=== PATIENT | female | born 1960 | race Two or more races ===

== ENCOUNTER 2025-01-11 15:17 | Emergency (ER) | payer BC, SELFPAY ==
--- NOTE | 2025-01-11 16:18 | EKG_ITS ---
[facility] Test Date: 2025-01-11 Pat Name: KALYAN TERAN Department: Room: - Gender: Female Health Analyst: : 1960 Requested By: Demetrius Goodman Order Number: [id number] Reading MD: Demetrius Goodman Measurements Intervals [place] Rate: 97 P: 68 [place]: 148 QRS: 41 QRSD: 78 T: 55 QT: 338 QTc: 430 Interpretive Statements SINUS RHYTHM POSSIBLE LEFT ATRIAL ENLARGEMENT [-0.1mV P-WAVE IN V1/V2] POSSIBLE RIGHT VENTRICULAR CONDUCTION DELAY [RSR (QR) IN V1/V2] No previous ECG available for comparison /store/S0/[id number]/ecg/[id number].pdf
--- NOTE | 2025-01-11 16:18 | XR_ITS ---
Examination: CT abdomen and pelvis without contrast. Coronal 3-D reconstructions. Sagittal 2-D reconstructions. Date and time of exam:January 11, 2025 1827 hrs. Indications: Left flank pain today CTDI: vol (mGy): 7.19 DLP: (mGycm): 375 Technique: Axial images of the abdomen have been obtained, 3 mm slice thickness Intravenous contrast material has not been administered. Low dose protocols were performed. One or more of the following dose reduction techniques were used; automated exposure control, adjustment of the mA and/or KV according to patient size, use of iterative reconstruction technique. Findings: No focal liver or splenic lesions No gallstones No pancreatic or adrenal mass No renal or ureteral calculi, no hydronephrosis Aorta normal size No bowel obstruction Normal appendix No diverticulitis No bladder mass or bladder calculi No pelvic mass Impression: No renal or ureteral calculi, no hydronephrosis No bladder mass or bladder calculi Normal appendix
--- NOTE | 2025-01-11 16:19 | PD.EDRME ---
Rapid Medical Screening Exam RME Arrival date/time: 01/11/25 15:17 CC: Right hip/flank/inguinal crease pain pain radiates down into the left thigh HPI abrupt onset this morning when she stood up from the bed. Progressive increase in pain currently an 8 on a 10 scale took ibuprofen without relief at 2 PM this afternoon. Denies painful urination bloody urination diarrhea chest pain shortness of breath or difficulty breathing. No higher prior history of similar events. Chief Complaint: Abdominal Pain Time Seen by Provider: 01/11/25 15:36
[2025-01-11 16:35] VITALS: BP 154/82; PULSE 86; RESP 18; TEMP 36.6; O2SAT 97; BMI 24.5
[2025-01-11 16:44] LABS: Basophils % (Auto) 0 % (0-2.5); Eosinophils % (Auto) 0 % (0-10); Hematocrit 40.9 % (36.0-46.0); Hemoglobin 14.3 g/dL (12.0-16.0); Immature Granulocytes % (Auto) 0 % (0-0); Immature Granulocytes Auto 0.03 Thou/mm3 (0.00-0.00); Lymphocytes # (Auto) 1.9 Thou/mm3 (1.0-4.8); Lymphocytes % (Auto) 21 % (10-50); Mean Corpuscular Hemoglobin 30.8 pg (25.0-35.0); Mean Corpuscular Volume 88 fL (80-100); Monocytes # (Auto) 0.3 Thou/mm3 (0.0-0.8); Monocytes % (Auto) 4 % (0-12); Neutrophils # (Auto) 6.6 Thou/mm3 (1.8-7.7); Neutrophils % (Auto) 75 % (37-80); Nucleated Red Blood Cell % 0 /100 WBC (0); Platelet Count 384 Thou/mm3 (140-440); RDW Standard Deviation 42.9 fL (36.4-46.3); Red Blood Count 4.65 Miln/mm3 (4.00-5.20); White Blood Count 8.9 Thou/mm3 (3.6-11.0)
[2025-01-11] MEDS: oxyCODONE/APAP 5/325 TABLET 1 TAB PO (17:00)
[2025-01-11 17:01] LABS: Partial Thromboplastin Time 25.1 Seconds (22.0-36.0); Prothrombin Time 10.9 Seconds (9.0-12.2)
[2025-01-11 17:04] LABS: B-Type Natriuretic Peptide < 20 pg/mL (0-100)
[2025-01-11 17:05] LABS: Alanine Aminotransferase 21 U/L (10-49); Albumin, Serum 4.7 gm/dL (3.4-4.8); Albumin/Globulin Ratio 1.5 (1.2-2.2); Alkaline Phosphatase 114 U/L (46-116); Anion Gap 12 (7-16); Aspartate Amino Transferase 29 U/L (0-34); BUN/Creatinine Ratio 21 Ratio (12-20); Bilirubin,Total 0.8 mg/dL (0.3-1.2); Blood Urea Nitrogen 17 mg/dL (9-23); Calcium 9.8 mg/dL (8.3-10.6); Calcium (Corrected) 9.8 mg/dL (8.5-10.1); Carbon Dioxide 24.2 mMol/L (20.0-31.0); Chloride 103 mMol/L (98-107); Creatinine (Component) 0.8 mg/dL (0.6-1.3); Estimated Creatinine Clearance 62.6 mL/min (>60); Globulin 3.1 gm/dL (2.3-3.5); Glucose 126 mg/dL (74-106); Lipase 34 U/L (12-53); Magnesium 2.1 mg/dL (1.6-2.6); Osmolality,Calculated 281 (275-295); Potassium 4.2 mMol/L (3.4-5.1); Sodium 139 mMol/L (136-145); Total Protein 7.8 gm/dL (5.7-8.2); eGFR > 60 See Note
[2025-01-11 18:42] LABS: Collection Type, Urine Clean Catch
[2025-01-11 19:03] LABS: Bilirubin,Urine Negative (Negative); Blood,Urine Negative (Negative); Clarity,Urine Clear (Clear/Hazy); Color,Urine Yellow (Lt Yel-Yel); Glucose, Urine Negative (Negative); Ketones,Urine Trace (Negative); Leukocyte Esterase,Urine Negative (Negative); Nitrite,Urine Negative (Negative); PH,Urine 8.5 (5.0-7.0); Protein,Urine Trace (Neg - Trace); RBC,Urine 3 /hpf (0-3); Specific Gravity,Urine 1.027 (1.001-1.035); Squamous Epithelial Cell,Urine 2 /hpf (0-5); Urobilinogen,Urine Negative mg/dL (0.0-1.0); WBC,Urine 5 /hpf (0-5)
[2025-01-11 19:25] LABS: Amphetamine/Methamp Scrn,U Negative (Negative); Barbiturate Screen,Urine Negative (Negative); Benzodiazepines Screen,Urine Negative (Negative); Benzoylecgonine Screen, Ur Negative (Negative); Fentanyl Screen,Urine Negative (Negative); Opiate Screen,Urine Negative (Negative); THC Screen,Urine Negative (Negative)
[2025-01-11 20:35] VITALS: BP 143/86; PULSE 118; RESP 18; TEMP 37.2; O2SAT 98
--- NOTE | 2025-01-11 20:37 | XR_ITS ---
Examination:Left hip AP, lateral, AP pelvis 3 views Technique: Hip AP lateral, AP pelvis, 3 views Exam date and time:January 01, 20252020 hrs. Indications: Onset chest pain today. Findings: No left hip fracture or dislocation No significant arthritic change Right hip bones of the pelvis intact Impression: No hip fracture or significant arthritic change.
--- NOTE | 2025-01-11 20:38 | EDNOTE_ITS ---
ED General RME/HPI General Chief complaint: Abdominal Pain Stated complaint: PAIN FROM L WAIST TO LEG Time Seen by Provider: 01/11/25 15:36 Arrival date/time: 01/11/25 15:17 RME / HPI RME / HPI narrative: 64-year-old female patient came in for evaluation regarding right hip/flank/inguinal crease pain pain radiates down into the left thigh HPI abrupt onset this morning when she stood up from the bed. Progressive increase in pain currently an 8 on a 10 scale took ibuprofen without relief at 2 PM this afternoon. Denies painful urination bloody urination diarrhea chest pain shortness of breath or difficulty breathing. No higher prior history of similar events. Related Data Previous Rx's ?Medication ?Instructions ?Recorded cyclobenzaprine 10 mg tablet 10 mg PO TID PRN muscle s pasm #30 01/11/25 tabs ibuprofen 800 mg tablet 800 mg PO TID PRN pain #30 t abs 01/11/25 Allergies Allergy/AdvReac Type Severity Reaction Status Date / Time NKA Allergy Unknown Uncoded 01/11/25 15:20 Review of Systems Review of Systems Narrative Review of Systems: Review of system reviewed and within normal limits except mentioned in HPI ED Exam Narrative Physical exam: VITAL SIGNS: Reviewed. GENERAL APPEARANCE: Alert and interactive, follows commands, no acute distress, HEAD AND FACE: Non-traumatic. ENT: PERRL, pink conjunctivitis, eyelid no trauma, Mucous membrane moist. NECK: Supple, nontender, no nuchal rigidity. CHEST: No tenderness, no crepitus, no paradoxical movement, no retractions. LUNGS: Clear, well ventilated, symmetric, no rales, no wheezing, no ronchi, no stridor, good breath sounds bilaterally. HEART: Regular rate, regular rhythm, no murmur, no gallops. ABDOMEN: Soft, positive bowel sounds, nondistended, no guarding, nontender, no rebound, no masses, RECTAL: Deferred. GENITAL: Deferred. NEUROLOGICAL: Gross motor function intact sensory function intact, Appropriate for age. MUSCULOSKELETAL: low back nontender, full range of motion. EXTREMITIES: Left hip tenderness, no swelling no deformity, full range of motion. SKIN: Color pink, dry, no rash, no lacerations, no abrasions, no contusions. LYMPHATICS: Deferred. Course Quality Measures none Orders Category Date Time Status EKG (ED ONLY) *Do not use* NOW Care 01/11/25 16:18 Completed Saline [Insert IV] NOW Care 01/11/25 16:[address] abdomen pelvis wo con Stat Exams 01/11/25 16:18 Completed EKG (ED Only) Stat Exams 01/11/25 16:18 Draft XR hip LT w pelvis 2-3V Stat Exams 01/11/25 20:37 Completed B-Type Natriuretic Peptide Stat Lab 01/11/25 16:28 Completed CBC Stat Lab 01/11/25 16:28 Completed Comprehensive Metabolic Panel Stat Lab 01/11/25 16:28 Completed Drug Screen,Urine Stat Lab 01/11/25 17:27 Completed Lipase Stat Lab 01/11/25 16:28 Completed Magnesium Stat Lab 01/11/25 16:28 Completed Partial Thromboplastin Time Stat Lab 01/11/25 16:28 Completed Prothrombin Time with INR Stat Lab 01/11/25 16:28 Completed Urinalysis Stat Lab 01/11/25 17:26 Completed Ketorolac Inj [Toradol Inj] Med 01/11/25 21:44 Once 30 mg IM X1 ONE oxyCODONE/APAP 5/325 [Percocet 5/325] Med 01/11/25 16:19 Discontinued 1 tab PO X1 ONE Vital Signs Vital signs: Vital Signs Temperature 98 F 01/11/25 16:35 Pulse Rate 86 01/11/25 16:35 Respiratory Rate 18 01/11/25 16:35 Blood Pressure 154/82 H 01/11/25 16:35 Pulse Oximetry (%) 97 01/11/25 16:35 Oxygen Delivery Method Room Air 01/11/25 16:35 [facility] Patient data External records reviewed:: None Clinical information provided by:: patient Social determinants that could affect healthcare access:: none Patient has the following chronic illnesses:: None How is presenting disease/condition affected by chronic disease/condition?: no chronic disease Evaluation data The following diagnostics were reviewed and interpreted by me:: lab results, radiology exam(s) and EKG tracing(s) Lab and/or radiology exams considered but not ordered:: None Interpretation Summary: EKG showed normal sinus rhythm, ventricular rate of 97 bpm, no ST segment elevation depression noted. The rest of the imaging and lab workup see [facility] Medications Medications considered but not ordered:: None Medication administrations:: Medication Administration History Discontinued Medications Oxycodone/Acetaminophen (Oxycodone/Apap 5/325 Tablet) 1 tab PO X1 ONE Stop: 01/11/25 16:20 Last Admin: 01/11/25 17:00 Dose: 1 tab Documented By: Percocet and Toradol Consultations Consultation(s) initiated? (list below): No Diagnosis Differential Diagnosis ED Complaint MDM: Sciatica, hip pain, abdominal pain Most likely diagnosis given after review of the tests above:: Sciatica Admission Indicated Admission indicated?: not indicated Explain why admission is indicated or not indicated:: None Admission Request Was there a request for admission?: No Disposition Plan Disposition Plan: Discharge Discharge Attestation Discharge Attestation: The patient and all family members were given an opportunity to ask questions and understood the discharge instructions. Discharge instructions specifically effects, indications for sooner follow up or return to the emergency department, and the expected course of current diagnosis. Patient condition: Stable Medical Decision Making MDM Narrative MDM Narrative: 64-year-old female patient came in for evaluation regarding right hip/flank/inguinal crease pain pain radiates down into the left thigh, posterior lateral aspect, HPI abrupt onset this morning when she stood up from the bed. Progressive increase in pain currently an 8 on a 10 scale took ibuprofen without relief at 2 PM this afternoon. Denies painful urination bloody urination diarrhea chest pain shortness of breath or difficulty breathing. No higher prior history of similar events. Patient's laboratory workup came back normal CT scan of the abdomen and pelvis came back unremarkable. Patient x-ray of the left hip also came back normal. Results discussed with the patient. Patient was given Percocet and Toradol with significant improvement of pain. Patient was advised to follow-up with PCP and for referral to spine surgeon regarding sciatica. Further imaging is not needed at this time, patient is not showing any cauda equina syndrome. No urinary incontinence no bowel incontinence no saddle anesthesia and patient is ambulatory. Differential Diagnosis Differential Diagnosis: Sciatica, hip pain, abdominal pain Lab Data 01/11/25 16:28 01/11/25 16:28 Labs: Lab Results 01/11/25 01/11/25 01/11/25 Range/Units 16:28 17:26 17:27 WBC 8.9 (3.6-11.0) Thou/mm3 RBC 4.65 (4.00-5.20) Miln/mm3 Hgb 14.3 (12.0-16.0) g/dL Hct 40.9 (36.0-46.0) % MCV 88 (80-100) fL MCH 30.8 (25.0-35.0) pg MCHC 35.0 (31.0-37.0) g/dl RDW Std Deviation 42.9 (36.4-46.3) fL Plt Count 384 (140-440) Thou/mm3 Neut % (Auto) 75 (37-80) % Lymph % (Auto) 21 (10-50) % [place] % (Auto) 4 (0-12) % Eos % (Auto) 0 (0-10) % Baso % (Auto) 0 (0-2.5) % Neut # (Auto) 6.6 (1.8-7.7) Thou/mm3 Lymph # (Auto) 1.9 (1.0-4.8) Thou/mm3 [place] # (Auto) 0.3 (0.0-0.8) Thou/mm3 Eos # (Auto) 0.0 (0.0-0.5) Thou/mm3 Baso # (Auto) 0.0 (0.0-0.2) Thou/mm3 Immature Gran # (Auto) 0.03 H (0.00-0.00) Thou/mm3 Absolute Nucleated RBC 0.00 (0.00-0.00) Thou/mm3 Immature Gran % 0 (0-0) % Nucleated RBC % 0 (0) /100 WBC PT 10.9 (9.0-12.2) Seconds INR 1.0 (0.9-1.3) APTT 25.1 (22.0-36.0) Seconds Sodium 139 (136-145) mMol/L Potassium 4.2 (3.4-5.1) mMol/L Chloride 103 (98-107) mMol/L Carbon Dioxide 24.2 (20.0-31.0) mMol/L Anion Gap 12 (7-16) BUN 17 (9-23) mg/dL Creatinine 0.8 (0.6-1.3) mg/dL Estim Creat Clear Calc 62.6 (>60) mL/min eGFR > 60 (60 - ) See Note BUN/Creatinine Ratio 21 H (12-20) Ratio Glucose 126 H (74-106) mg/dL Calculated Osmolality 281 (275-295) Calcium 9.8 (8.3-10.6) mg/dL Corrected Calcium 9.8 (8.5-10.1) mg/dL Magnesium 2.1 (1.6-2.6) mg/dL Total Bilirubin 0.8 (0.3-1.2) mg/dL AST 29 (0-34) U/L ALT 21 (10-49) U/L Alkaline Phosphatase 114 (46-116) U/L B-Natriuretic Peptide < 20 (0-100) pg/mL Total Protein 7.8 (5.7-8.2) gm/dL Albumin 4.7 (3.4-4.8) gm/dL Globulin 3.1 (2.3-3.5) gm/dL Albumin/Globulin Ratio 1.5 (1.2-2.2) Lipase 34 (12-53) U/L Ur Collection Type Clean Catch Urine Color Yellow (Lt Yel-Yel) Urine Clarity Clear (Clear/Hazy) Urine pH 8.5 H (5.0-7.0) Ur Specific [place] 1.027 (1.001-1.035) Urine Protein Trace (Neg - Trace) Urine Glucose (UA) Negative (Negative) Urine Ketones Trace (Negative) Urine Blood Negative (Negative) Urine Nitrite Negative (Negative) Urine Bilirubin Negative (Negative) Urine Urobilinogen (Auto) Negative (0.0-1.0) mg/dL Ur Leukocyte Esterase Negative (Negative) Urine RBC 3 (0-3) /hpf Urine WBC 5 (0-5) /hpf Ur Squamous Epith Cells 2 (0-5) /hpf Urine Bacteria None (None) Urine Opiates Screen Negative (Negative) Urine Fentanyl Screen Negative (Negative) Ur Barbiturates Screen Negative (Negative) U Amphetamin/Meth Scrn Negative (Negative) U Benzodiazepines Scrn Negative (Negative) U Cocaine Metab Screen Negative (Negative) U Marijuana (THC) Screen Negative (Negative) Discharge Plan Plan Patient Disposition: HOME (Self Care) Disposition Comment: Stable Prescriptions/Referrals Prescriptions/Med Rec: New ibuprofen 800 mg tablet 800 mg PO TID PRN (Reason: pain) Qty: 30 0RF cyclobenzaprine 10 mg tablet 10 mg PO TID PRN (Reason: muscle spasm) Qty: 30 0RF Referrals: No Primary/Family,Physician [Primary Care Provider] - In 1 week Problem List Clinical Impression: Sciatica Patient/Caregiver Discharge Instructions Discharge Activity: activity as tolerated Education Materials: ED Sciatica Additional Instructions: Thank you for the opportunity for serving you today. You are stable for discharged . You are advised to: Follow-up with your PCP in 1 to 2 days and asked for referral to seed and fertilizer specialist Return to ED for worsening of symptoms Increase oral fluids Take medication as prescribed Print Language: Albanian Stand Alone Forms: [facility] Award Info., Patient Portal Info Letter PA/SAMPLING THEORY TEACHER Supervising Physician PA/SAMPLING THEORY TEACHER Supervising Physician: MD Rolando
[2025-01-11] MEDS: KETOROLAC INJ 60 MG/2 ML VIAL 30 MG IM (22:03)
== END 2025-01-11 22:07 | disposition home or self-care (01) ==
PROVIDERS: Registered Nurse General Practice; Emergency Provider Emergency Medicine
DX: M54.32 Sciatica, left side (principal)
CPT/HCPCS: 36415; 73502; 74176; 80053; 80307; 81001; 83690; 83735; 83880; 85025; 85610; 85730; 93005; 96372; 99284; J1885; A9270

== ENCOUNTER → 2025-03-21 | Outpatient (CLI) | payer BC, SELFPAY ==
--- NOTE | 2025-03-21 14:00 | XR_ITS ---
Examination: Breast ultrasound, unilateral, left complete Date and time of exam: March 21, 2025 1404 hours INDICATIONS: History given unspecified lump in the left breast, family history, sister breast cancer Technique: Real-time mas scale ultrasonographic imaging performed left breast including all 4 quadrants as well as nipple retroareolar and axillary region. Findings: No cystic or solid mass IMPRESSION: BI-RADS Category 0: Incomplete: Need additional imaging evaluation Recommend diagnostic mammography follow-up
--- NOTE | 2025-03-21 14:30 | XR_ITS ---
Examination: Diagnostic digital mammography, bilateral Computer aided detection 3-D breast Tomosynthesis, bilateral Date and time of exam: March 21, 2025 1419 hours Compared to mammograms dating to November 20, 2008 Technique: Nonmagnified MLO, CC views of the breasts to been obtained, reconstructed from 3-D Tomosynthesis images. R2 computer aided detection program utilized for evaluation of suspicious masses and/or abnormal calcifications. 3-D Tomosynthesis images obtained. Findings: Scattered areas of fibroglandular density. 12 mm nodule 12:00 position right breast Impression: BI-RADS Category 0: Incomplete: Need additional imaging evaluation Recommend follow-up spot tomographic views of 12 mm nodule 12:00 position right breast as well as right breast sonography to complete workup.
== END | disposition home or self-care (01) ==
PROVIDERS: Referring Provider Family Medicine; Visit Provider Family Medicine
DX: R92.8 Other abnormal and inconclusive findings on diagnostic imaging of breast (principal); N63.15 Unspecified lump in the right breast, overlapping quadrants
CPT/HCPCS: 76641; 77062; 77066; G0279

== ENCOUNTER → 2025-04-17 | Outpatient (CLI) | payer BC, SELFPAY ==
--- NOTE | 2025-04-17 13:00 | XR_ITS ---
Examination: Breast ultrasound, unilateral, right Date and time of exam: April 17, 2025 1251 hours INDICATIONS: Mammogram March 21, 2025 12:00 nodule right breast 12 mm Technique: Real-time mas scale ultrasonographic imaging performed right breast including all 4 quadrants as well as nipple retroareolar and axillary region. Findings: No cystic or solid mass IMPRESSION: BI-RADS Category 1: Negative study
--- NOTE | 2025-04-17 13:45 | XR_ITS ---
Examination: Diagnostic digital mammography, unilateral, right Computer aided detection 3-D breast Tomosynthesis, unilateral Date and time of exam: April 17, 2025 1306 hours INDICATIONS: Mammogram March 21, 2025 12 mm nodule 12:00 position right breast Technique: Nonmagnified MLO, CC views of the right breast have been obtained, reconstructed from 3-D Tomosynthesis images. R2 computer aided detection program utilized for evaluation of suspicious masses and/or abnormal calcifications. 3-D Tomosynthesis images obtained. Findings: Scattered areas of fibroglandular density. Benign calcifications. Focal asymmetry remains on the spot compression MLO view upper right breast, 12 mm Impression: BI-RADS category 3: Probably benign findings One additional 6 month right mammogram follow-up is needed
== END | disposition home or self-care (01) ==
LOC: CDIM 12:39
DX: R92.1 Mammographic calcification found on diagnostic imaging of breast (principal); N64.89 Other specified disorders of breast; R92.321 Mammographic fibroglandular density, right breast
CPT/HCPCS: 76641; 77061; 77065; G0279